=== PATIENT | male | born 1945 | race Caucasian/White ===

== ENCOUNTER → 2017-02-02 | Outpatient (CLI) | payer MEDICARE, OTHER ==
[~2017-02-02] MED LIST: ADVIL LIQUI-GE200 MG PO; BC1 POW; CIALIS10 MG PO; CORDARONE200 MG/TAB PO; FLEXERIL 1010 MG/TAB PO; FLEXERIL10 MG PO; GLUCOSAMINE S1000 MG PO; LOTENSIN40 MG PO; PRADAXA 150MG150 MG PO; PROSCAR 5MG5 MG PO; ULTRAM 50MG TAB50 MG PO; ZITHROMAX 250M250 MG PO
== END ==
LOC: COL.VAS 08:45
DX: I82.512 Chronic embolism and thrombosis of left femoral vein (principal); I82.532 Chronic embolism and thrombosis of left popliteal vein; M79.605 Pain in left leg; M79.89 Other specified soft tissue disorders

== ENCOUNTER → 2017-03-14 | Outpatient (CLI) | payer MEDICARE, OTHER ==
[2017-03-14 13:22] LABS: MEAN CELL VOLUME 88 fl (80.0-100.0); MEAN CORPUSCULAR HEMOGLOBIN 30 pg (27.0-31.0); MEAN CORPUSCULAR HGB CONC 34 g/dl (33.0-37.0); MEAN PLATELET VOLUME 9.6 fl (7.4-10.4); PLATELET COUNT 233 K/mm3 (130-400); RED BLOOD COUNT 5.93 M/mm3 (4.20-5.60); REDCELL DISTRIBUTION WIDTH-CV 14.6 % (11.5-14.5); WHITE BLOOD COUNT 7.3 K/mm3 (4.8-10.8)
[2017-03-14 13:24] LABS: HEMATOCRIT 52.4 % (42.0-52.0)
[2017-03-14 13:27] LABS: CALCIUM 9.4 mg/dL (8.4-10.2); CREATININE, serum 1.09 mg/dL (0.66-1.25); POTASSIUM 3.2 mmol/L (3.4-5.0)
== END ==
LOC: COL.LAB 11:05
PROVIDERS: Internal Medicine Interventional Cardiology
DX: I82.409 Acute embolism and thrombosis of unspecified deep veins of unspecified lower extremity (principal); R60.9 Edema, unspecified

== ENCOUNTER → 2019-12-13 | Outpatient (CLI) | payer MEDICARE, OTHER ==
[2019-12-13 11:53] LABS: HEMOGLOBIN 17.7 g/dl (13.5-18.0); MEAN CELL VOLUME 90 fl (80.0-100.0); MEAN CORPUSCULAR HEMOGLOBIN 30 pg (27.0-31.0); MEAN CORPUSCULAR HGB CONC 33 g/dl (33.0-37.0); MEAN PLATELET VOLUME 10.3 fl (7.4-10.4); PLATELET COUNT 220 K/mm3 (130-400); REDCELL DISTRIBUTION WIDTH-CV 14.2 % (11.5-14.5)
[2019-12-13 11:55] LABS: CREATININE, serum 1.08 (0.66-1.25); POTASSIUM 3.8 mmol/L (3.4-5.0)
[2019-12-13 11:56] LABS: INR 1.2 (0.8-3.0); PROTHROMBIN TIME 13.8 SECONDS (9.7-12.8)
[2019-12-13 11:57] LABS: HEMATOCRIT 53.7 % (42.0-52.0)
== END ==
LOC: COL.LAB 11:22
PROVIDERS: Internal Medicine Interventional Cardiology
DX: I82.512 Chronic embolism and thrombosis of left femoral vein (principal); Z79.01 Long term (current) use of anticoagulants

== ENCOUNTER 2020-10-10 22:11 | Inpatient (IN) | payer MEDICARE, OTHER ==
[~2020-10-10] VITALS: Ht 182.9 cm; Wt 114.1 kg
[~2020-10-10 22:11] MED LIST changes: +GLUCOSAMINE 1000 PO; -GLUCOSAMINE S1000 MG PO
[2020-10-11] LABS: BASO % 0.3 % (0.0-2.0); GRAN # 6.6 (1.4-6.5); GRAN % 84.8 % (42.2-75.2); HEMATOCRIT 48.7 % (42.0-52.0); HEMOGLOBIN 16.3 g/dl (13.5-18.0); LYMPH # 0.4 (1.2-3.4); LYMPH % 5.4 % (20.0-51.0); MEAN CELL VOLUME 87 fl (80.0-100.0); MEAN CORPUSCULAR HEMOGLOBIN 29 pg (27.0-31.0); MEAN CORPUSCULAR HGB CONC 34 g/dl (33.0-37.0); MEAN PLATELET VOLUME 10.7 fl (7.4-10.4); MONO # 0.7 (0.1-0.6); MONO % 9.1 % (1.7-9.3); PLATELET COUNT 174 K/mm3 (130-400); RED BLOOD COUNT 5.63 M/mm3 (4.20-5.60); REDCELL DISTRIBUTION WIDTH-CV 13.5 % (11.5-14.5)
[2020-10-11 00:01] LABS: INR 2.1 (0.8-3.0); PROTHROMBIN TIME 23.7 SECONDS (9.7-12.8)
[2020-10-11 00:04] LABS: PARTIAL THROMBOPLASTIN TIME 48.6 SECONDS (26.0-37.0)
[2020-10-11 00:07] LABS: BILIRUBIN,TOTAL 1.1 mg/dL (0.0-1.0); CALCIUM 8.2 mg/dL (8.4-10.2); CREATININE, serum 1.13 (0.66-1.25); POTASSIUM 3.3 mmol/L (3.4-5.0); TOTAL PROTEIN 7.1 gm/dL (6.4-8.2)
[2020-10-11 00:20] LABS: TROPONIN-I 0.039 ng/mL (0.000-0.035)
[2020-10-11 00:37] LABS: THYROID STIMULATING HORMONE 2.27 uIU/mL (0.465-4.680)
[2020-10-11] MEDS ORDERED: ELIQUIS 5MG PO (02:46)
[2020-10-11] MEDS ORDERED: HYDRODIURIL50 MG PO (02:48)
[2020-10-11] MEDS ORDERED: DIGESTIVE ADVA1 EAC1 PO ×2 (02:53→02:54)
--- NOTE | 2020-10-11 03:20 | NUR ---
PT A/O X4, IN BED WITH HOB ELEVATED TO 30 DEGREE ANGLE. PT DENIES ANY PAIN OR DISCOMFORT OR ANY NEEDS. CALL LIGHT WITHIN REACH AND BED ALARM ON.
[2020-10-11 04:03] VITALS: BP 153/75; PULSE 73; TEMP 98.2
--- NOTE | 2020-10-11 04:12 | NUR ---
NOTIFIED DR. VALDEZ OF [facility]. RECEIVED ORDERS TO RECHECK TROPONIN IN A COUPLE OF HOURS. SHE ADVISED ORDER WAS ALREADY IN.
[2020-10-11 04:16] LABS: COLLECTION METHOD CLEAN CATCH
[2020-10-11 04:21] LABS: PH 6 (5-8); SQUAMOUS EPITHELIAL None Seen /hpf; URINE APPEARANCE Clear; URINE BACTERIA Rare /hpf; URINE BILIRUBIN Negative (NEGATIVE); URINE BLOOD 1+ (NEGATIVE); URINE COLOR Yellow; URINE GLUCOSE Negative (NEGATIVE); URINE KETONE Negative (NEGATIVE); URINE LEUKOCYTE ESTERASE Negative (NEGATIVE); URINE NITRATE Negative (NEGATIVE); URINE PROTEIN(semi-quant) Negative (NEGATIVE); URINE RBC 0-2 /hpf; URINE UROBILINOGEN Negative (NEGATIVE)
--- NOTE | 2020-10-11 07:32 | NUR ---
PT IN BED WITH HOB ELEVATED AND OXYGEN ON. PT SLEEPING BUT EASILY AWAKENS. PT DENIES PAIN OR DISCOMFORT, AND NO NEEDS AT THIS TIME, CALL LIGHT WITHIN REACH, AND BED ALARM ON.
[2020-10-11 08:22] VITALS: BP 148/66; PULSE 75; TEMP 98.9
--- NOTE | 2020-10-11 11:12 | NUR ---
PATIENT ASSESSMENT COMPLETED. HE WAS FOUND TO HAVE ACCIDENTALLY PULLED OUT HIS IV TO THE LEFT AC WILL RESTART. COUGH IS BETTER THAN IT WAS. O2 5L
[2020-10-11 13:16] VITALS: BP 140/62; PULSE 78; TEMP 98.6
[2020-10-11 15:38] VITALS: BP 146/64; PULSE 86; TEMP 98.4
[2020-10-11 19:20] VITALS: BP 130/48; PULSE 97; TEMP 100.7
[2020-10-11 20:00] VITALS: BP 164/83; PULSE 76; TEMP 98.3
--- NOTE | 2020-10-11 20:00 | NUR ---
Patient in bed resting. Alert and oriented x 3. Assessment complete. Fluids infusing per orders to right AC IV. Patient denies pain at this time. Lung bases diminished bilaterally. Denies further needs at this time.
--- NOTE | 2020-10-11 21:00 | NUR ---
Patient up to recliner, denies further needs at this time.
--- NOTE | 2020-10-11 21:20 | NUR ---
Patient tempt of 101.7, tylenol given per orders. Will continue to monitor.
[2020-10-12] VITALS (303 sets, daily range): BP systolic 119–164; BP diastolic 55–98; PULSE 72–87; TEMP 97–102.1; O2SAT 82–99
--- NOTE | 2020-10-12 06:53 | NUR ---
Patient has done well throughout the night. Minimal needs. Has been up to recliner today. Remains of 5l O2 via NC. Fluids infusing per orders. Denies further needs at this time. Will report off to city distribution clerk.
--- NOTE | 2020-10-12 07:07 | NUR ---
patient asleep during nurse report.
--- NOTE | 2020-10-12 13:00 | NUR ---
Patient brought to ICU, placed on Airvo and Dr. Aguayo in room to see patient. Patient is given update on plan of care and possibility of needing intubation if he worsens. Patient is also notified of need for PICC line, he agrees. Initial assessment and vitals completed. He is febrile with temp of 102.[address] aguayo gives order to give tylenol for fever. Will continue to monitor
[2020-10-12 13:16] LABS: ARTERIAL BLD GAS O2 SATURATION 92.3 % (92-100); ARTERIAL BLD GAS TCO2 CT 29.9; ARTERIAL BLOOD GAS BASE EXCESS 5.3 (-2-2); ARTERIAL BLOOD GAS HCO3 28.7 meq/L (22-26); ARTERIAL BLOOD GAS PO2 53.6 mmHg (80-100)
--- NOTE | 2020-10-12 13:30 | NUR ---
, Essie, contacted and notified in change in patient condition and the plan of care from this point on. She is given the number to the ICU and the privacy passcode. She verbalizes understanding.
[2020-10-12 13:50] LABS: BASO % 0.1 % (0.0-2.0); GRAN # 9.4 (1.4-6.5); GRAN % 87.1 % (42.2-75.2); HEMATOCRIT 45.7 % (42.0-52.0); HEMOGLOBIN 15.4 g/dl (13.5-18.0); LYMPH # 0.5 (1.2-3.4); LYMPH % 4.4 % (20.0-51.0); MEAN CELL VOLUME 87 fl (80.0-100.0); MEAN CORPUSCULAR HEMOGLOBIN 29 pg (27.0-31.0); MEAN CORPUSCULAR HGB CONC 34 g/dl (33.0-37.0); MEAN PLATELET VOLUME 10.4 fl (7.4-10.4); MONO # 0.8 (0.1-0.6); MONO % 7.7 % (1.7-9.3); PLATELET COUNT 221 K/mm3 (130-400); RED BLOOD COUNT 5.28 M/mm3 (4.20-5.60); REDCELL DISTRIBUTION WIDTH-CV 14.1 % (11.5-14.5)
--- NOTE | 2020-10-12 14:02 | NUR ---
PATIENT ALERT AND ORIENTED, STARTED TO SAT 83%-87% ON 5L. changed to High Flow at 15L, RT placed patient on Airvo 30L at 50%, Patient was still sating 88-89%. Patient was increased to 45L. Labored breathing. Dr Branch ordered to transfer patient to ICU 03. Report given to KRISTA Geiger . Patient transferred. Son updated on the transfer.
[2020-10-12 14:04] LABS: CALCIUM 7.6 mg/dL (8.4-10.2); MAGNESIUM 2.3 mg/dL (1.6-2.3); POTASSIUM 3.8 mmol/L (3.4-5.0)
[2020-10-12 14:20] LABS: C-REACTIVE PROTEIN 19.6 mg/dL (0.0-0.9)
--- NOTE | 2020-10-12 16:43 | NUR ---
Patient transferred from the Medical Floor to the ICU. SW attempted to contact patient's , Essie at her home and cell number and was unable to reach her. SW left a message on patient's cell. SW also attempted to contact patient's other contact, Simon and was unable to leave a message as the mailbox was full. ILIANA will follow up tomorrow.
[2020-10-12 18:12] LABS: ARTERIAL BLD GAS TCO2 CT 29.3; ARTERIAL BLOOD GAS BASE EXCESS 3.6 (-2-2); ARTERIAL BLOOD GAS PCO2 41.6 mmHg (35-45); ARTERIAL BLOOD GAS PO2 61.8 mmHg (80-100); ARTERIAL BLOOD GAS pH 7.45 (7.35-7.45)
[2020-10-12 23:00] LABS: ARTERIAL BLD GAS O2 SATURATION 96.2 % (92-100); ARTERIAL BLD GAS TCO2 CT 26.7; ARTERIAL BLOOD GAS BASE EXCESS 1.9 (-2-2); ARTERIAL BLOOD GAS HCO3 25.6 meq/L (22-26); ARTERIAL BLOOD GAS PCO2 37.1 mmHg (35-45); ARTERIAL BLOOD GAS PO2 76.5 mmHg (80-100); ARTERIAL BLOOD GAS pH 7.46 (7.35-7.45)
[2020-10-13] VITALS (895 sets, daily range): BP systolic 133–216; BP diastolic 71–132; PULSE 64–99; TEMP 97.5–98.8; O2SAT 65–100
--- NOTE | 2020-10-13 00:08 | NUR ---
2119 PATIENT NO LONGER TOLERATING THE AIRVO SPO2 IN THE LOW 80'S AND MAXED OUT ON AIRVO. BEN NOTIFIED DR. CONTRERAS ORDERED ABG ONE HOUR POST BIPAP. WILL CONTINUE TO MONITOR PATIENT.
--- NOTE | 2020-10-13 01:31 | NUR ---
Initiated vecuronium drip. TOF obtained with 4 twitches noted before and 15 min after initiation of drip.
[2020-10-13 04:59] LABS: ARTERIAL BLD GAS O2 SATURATION 96.5 % (92-100); ARTERIAL BLD GAS TCO2 CT 29.2; ARTERIAL BLOOD GAS BASE EXCESS 3.1 (-2-2); ARTERIAL BLOOD GAS HCO3 27.9 meq/L (22-26); ARTERIAL BLOOD GAS PO2 81.7 mmHg (80-100); ARTERIAL BLOOD GAS pH 7.43 (7.35-7.45)
[2020-10-13 05:32] LABS: BASO % 0.2 % (0.0-2.0); GRAN # 9.6 (1.4-6.5); GRAN % 89.6 % (42.2-75.2); HEMATOCRIT 46.9 % (42.0-52.0); HEMOGLOBIN 15.3 g/dl (13.5-18.0); LYMPH # 0.4 (1.2-3.4); LYMPH % 3.4 % (20.0-51.0); MEAN CELL VOLUME 87 fl (80.0-100.0); MEAN CORPUSCULAR HEMOGLOBIN 28 pg (27.0-31.0); MEAN CORPUSCULAR HGB CONC 33 g/dl (33.0-37.0); MEAN PLATELET VOLUME 10.7 fl (7.4-10.4); MONO # 0.6 (0.1-0.6); MONO % 5.9 % (1.7-9.3); PLATELET COUNT 236 K/mm3 (130-400); RED BLOOD COUNT 5.38 M/mm3 (4.20-5.60); REDCELL DISTRIBUTION WIDTH-CV 14.3 % (11.5-14.5)
[2020-10-13 05:48] LABS: CALCIUM 7.4 mg/dL (8.4-10.2); CREATININE, serum 0.89 (0.66-1.25); MAGNESIUM 2.4 mg/dL (1.6-2.3); PHOSPHOROUS 2.9 mg/dL (2.5-4.5); POTASSIUM 4.2 mmol/L (3.4-5.0)
--- NOTE | 2020-10-13 10:49 | NUR ---
SW update: Attempted call to Essie at [phone] and [phone] and did not gain contact. SW will try again.
--- NOTE | 2020-10-13 12:12 | NUR ---
Son and called with updates. Both voice understanding of POC and disease process. Patient awake in room. Able to reposition self in bed, but states "I feel like I just ran a marathon" after repositioning.
--- NOTE | 2020-10-13 22:00 | NUR ---
Notifed by RT that patient appeared to be having an increased work of breathing with respirations in the 50's. RT called Dr. Ortiz with [facility] and reported patient condition and requested an ABG. Physician denied need for an ABG and requested to intubate at this time. Anethesia and hospitalist notified. This nurse also called patient's and updated her on patient condition and the need for intubation. was agreeable to intubation at this time.
--- NOTE | 2020-10-13 22:27 | NUR ---
Discussed care plan with patient and stated that after speaking with the physician we have decieded to intubate. Patient is currenlty alert and oriented and agreeable to intubation at this time.
--- NOTE | 2020-10-13 22:40 | NUR ---
Anesthesia at bedside to intubate.
--- NOTE | 2020-10-13 23:30 | NUR ---
Arterial line placed by anesthesia. Patient hypertensive with systolics in the 200's; sedation and pain medications initiated. Hospitalist notified of hypertension. Instructed to wait approximatelly 15 minutes and call back if BP not trending down.
[2020-10-14] VITALS (598 sets, daily range): BP systolic 68–175; BP diastolic 46–91; PULSE 59–97; TEMP 98.1–100.6; O2SAT 84–100
--- NOTE | 2020-10-14 00:20 | NUR ---
Patient desaturates to mid to low 80's with any stimulation. Vent frequently alarming high and low PEEP. Discussed care with [facility] physician Dr. Paual and will initiate Vecuronium drip.
[2020-10-14 01:34] LABS: ARTERIAL BLD GAS TCO2 CT 25.9; ARTERIAL BLOOD GAS BASE EXCESS -3.2 (-2-2); ARTERIAL BLOOD GAS HCO3 24.3 meq/L (22-26); ARTERIAL BLOOD GAS PCO2 53.1 mmHg (35-45); ARTERIAL BLOOD GAS PO2 53.7 mmHg (80-100); ARTERIAL BLOOD GAS pH 7.28 (7.35-7.45)
--- NOTE | 2020-10-14 03:59 | NUR ---
2202 CALLED BEN PATIENT IS HAVING INCREASED WORK OF BREATHING WITH RATE IN THE 50'S AND BEGINNING TO DESAT. BEN WANTED TO INTUBATE AND HAVE PAPER CONE GRADER ANESTHESIA CALLED. DOES NOT WANT ABG PRIOR TO INTUBATION.
--- NOTE | 2020-10-14 04:01 | NUR ---
2240 PATIENT WAS INTUBATED WITH A 8.5 ETT 25@LIP. POST INTUBATION PATIENT STARTED DESATING AND HAVING LOW BLOOD PRESSURE. EVEN WHILE BAGGING PATIENT SPO2 IS NOT COMING UP. STARTED THE VENT IN ORDER TO GET PEEP IN FOR PATIENT. ORIGINAL SETTINGS GIVEN BY DR. SANTIAGO WAS VT 500, RATE 12, PEEP OF 5. HOWEVER PATIENT WAS STILL NOT TOLERATING HAVING WORSE SPO2 TO THE 70'S. CHANGED SETTINGS TO VT 450, RATE 20, PEEP OF 15, SETTINGS VERIFIED WITH BEN. INSTRUCTED TO WAIT 30 MIN TO SEE SPO2 IMPROVEMENT AND IF NOT WANTS TO POSSIBLY PRONE PATIENT. AT 0144 CALLED BEN TO NOTIFY OF PATIENTS ABG RESULTS. DR. GIBSON WOULD LIKE TO INCREASE THE PEEP TO 20. AT 0046 PEEP WAS INCREASED TO 20 WITH SIGNIFICANT IMPROVEMENT IN SPO2.
--- NOTE | 2020-10-14 04:10 | NUR ---
TOF performed and no twitch observed. Decreased drip rate at this time.
--- NOTE | 2020-10-14 04:22 | NUR ---
PATIENT HAS HME
--- NOTE | 2020-10-14 04:38 | NUR ---
Discussed bordeline hypotensive BP's and low urine output with Nurse from [facility]. Currenlty on Vecuronium. Can continue to titrate down until response is seen with TOF. Nurse to discuss care with [facility] physician. Will await further orders.
[2020-10-14 05:21] LABS: HEMATOCRIT 47.6 % (42.0-52.0); HEMOGLOBIN 15.2 g/dl (13.5-18.0); MEAN CELL VOLUME 90 fl (80.0-100.0); MEAN CORPUSCULAR HEMOGLOBIN 29 pg (27.0-31.0); MEAN CORPUSCULAR HGB CONC 32 g/dl (33.0-37.0); MEAN PLATELET VOLUME 10.9 fl (7.4-10.4); PLATELET COUNT 189 K/mm3 (130-400); RED BLOOD COUNT 5.28 M/mm3 (4.20-5.60); REDCELL DISTRIBUTION WIDTH-CV 14.7 % (11.5-14.5)
[2020-10-14 05:30] LABS: CALCIUM 7.8 mg/dL (8.4-10.2); CREATININE, serum 1.02 (0.66-1.25); MAGNESIUM 2.6 mg/dL (1.6-2.3); PHOSPHOROUS 5.1 mg/dL (2.5-4.5); POTASSIUM 4.5 mmol/L (3.4-5.0)
[2020-10-14 05:52] LABS: BAND 7 % (0-10); LYMPHOCYTE 2 % (20.0-51.0); NEUTROPHILS 89 % (42.0-75.2); PLATELET ESTIMATE NORMAL (NORMAL)
[2020-10-14 05:54] LABS: HYPOCHROMIA 1+
[2020-10-14 06:04] LABS: ARTERIAL BLD GAS O2 SATURATION 98.8 % (92-100); ARTERIAL BLD GAS TCO2 CT 29.1; ARTERIAL BLOOD GAS BASE EXCESS -4.3 (-2-2); ARTERIAL BLOOD GAS HCO3 26.7 meq/L (22-26)
[2020-10-14 06:05] LABS: ARTERIAL BLOOD GAS PCO2 76.7 mmHg (35-45); ARTERIAL BLOOD GAS PO2 169.7 mmHg (80-100); ARTERIAL BLOOD GAS pH 7.16 (7.35-7.45)
--- NOTE | 2020-10-14 07:00 | NUR ---
REPORT RECEIVED FROM MARIBEL VELASCO. PT HAS VEC RUNNING AT 0.4MCG, PROP FRUNNING AT 35MCG, AND FENT RUNNING AT 50MCG.
--- NOTE | 2020-10-14 07:03 | NUR ---
PT HAS HME
--- NOTE | 2020-10-14 09:45 | NUR ---
ATTEMPTED TO CALL SON FOR TO UPDATE THREE TIMES BUT NO ANSWER.
[2020-10-14 12:09] LABS: ARTERIAL BLD GAS O2 SATURATION 93.9 % (92-100); ARTERIAL BLD GAS TCO2 CT 28.1; ARTERIAL BLOOD GAS BASE EXCESS -1.5 (-2-2); ARTERIAL BLOOD GAS HCO3 26.3 meq/L (22-26); ARTERIAL BLOOD GAS PCO2 56.7 mmHg (35-45); ARTERIAL BLOOD GAS PO2 63.3 mmHg (80-100); ARTERIAL BLOOD GAS pH 7.29 (7.35-7.45)
--- NOTE | 2020-10-14 12:12 | NUR ---
PT BECAME HYPOTENSIVE IN THE 60'S. SEDATIONS STOPPED. PT NOT RESPONDING. CALLED AND ORDER FOR LEVOPHED RECEIVED. LEVO STARTED. ABG DONE BY RESPIRATORY. BG SHOWS 132. PT STARTED TO RESPOND AFTER SEDATION OFF FOR 2O MINS. PT ABLE TO FOLLOW COMMANDS AND ANSWER YES AND NO QUESTIONS. BP BACK UP AND LEVO WEANED OFF. WILL SLOWLY RESTART SEDATION NEEDED.
--- NOTE | 2020-10-14 13:50 | NUR ---
PT PRONED WITH RT, PT AND ANOTHER RN. PT'S VSS. WILL CONTINUE TO MONITOR.
--- NOTE | 2020-10-14 17:00 | NUR ---
PT HAD A SEDATION VACATION EARLIER IN THE DAY. PT WAS ABLE TO MOVE ALL EXTREMITIES, FOLLOW COMMANDS AND ANSWER YES/NO QUESTIONS. PT STILL IN PRONE POSITION AND TURNED. PT BECAME TACHYPNIC AND RESTLESS DURING TURN. WILL NOT DO ANOTHER SEDATION VACATION AT THIS TIME.
[2020-10-14 17:17] LABS: ARTERIAL BLD GAS O2 SATURATION 97.8 % (92-100); ARTERIAL BLD GAS TCO2 CT 24.6; ARTERIAL BLOOD GAS BASE EXCESS -2.7 (-2-2); ARTERIAL BLOOD GAS HCO3 23.3 meq/L (22-26); ARTERIAL BLOOD GAS PCO2 44.3 mmHg (35-45); ARTERIAL BLOOD GAS PO2 98.2 mmHg (80-100); ARTERIAL BLOOD GAS pH 7.34 (7.35-7.45)
--- NOTE | 2020-10-14 21:00 | NUR ---
TUBE FEEDS INCREASED TO 35 MLS/HR PER TUBE FEED ORDERS. RESIDUALS <5 MLS.
[2020-10-15] VITALS (623 sets, daily range): BP systolic 111–175; BP diastolic 55–80; PULSE 59–70; TEMP 96.7–98.1; O2SAT 84–100
[2020-10-15 04:18] LABS: BASO % 0.2 % (0.0-2.0); HEMATOCRIT 46.8 % (42.0-52.0); HEMOGLOBIN 15.1 g/dl (13.5-18.0); LYMPH # 0.4 (1.2-3.4); MEAN CELL VOLUME 89 fl (80.0-100.0); MEAN CORPUSCULAR HEMOGLOBIN 29 pg (27.0-31.0); MEAN CORPUSCULAR HGB CONC 32 g/dl (33.0-37.0); MEAN PLATELET VOLUME 10.2 fl (7.4-10.4); MONO # 0.2 (0.1-0.6); MONO % 1.9 % (1.7-9.3); PLATELET COUNT 186 K/mm3 (130-400); RED BLOOD COUNT 5.28 M/mm3 (4.20-5.60); REDCELL DISTRIBUTION WIDTH-CV 14.9 % (11.5-14.5)
[2020-10-15 04:28] LABS: CALCIUM 8.1 mg/dL (8.4-10.2); CREATININE, serum 1.31 (0.66-1.25); PHOSPHOROUS 2.8 mg/dL (2.5-4.5); POTASSIUM 4.1 mmol/L (3.4-5.0)
[2020-10-15 06:17] LABS: ARTERIAL BLD GAS O2 SATURATION 99.3 % (92-100); ARTERIAL BLD GAS TCO2 CT 25.7; ARTERIAL BLOOD GAS BASE EXCESS -0.2 (-2-2); ARTERIAL BLOOD GAS HCO3 24.5 meq/L (22-26); ARTERIAL BLOOD GAS PCO2 40.1 mmHg (35-45)
[2020-10-15 06:18] LABS: ARTERIAL BLOOD GAS PO2 192.7 mmHg (80-100)
--- NOTE | 2020-10-15 07:27 | NUR ---
PT IS NOT ON WEAN TRIAL HIS SETTINGS ARE TOO HIGH AND DOES NOT QUALIFY. PT IS ON DOCUMENTED SETTINGS MANJIT WELL WITH NO DISTRESS NOTED AT THIS TIME
--- NOTE | 2020-10-15 07:30 | NUR ---
RECEIVED REPORT FROM KRISTA LEWIS. PT RESTING EASILY. DR GARCIA AT BEDSIDE FOR ASSESSMENT. VENT SETTINGS CHANGED TO : AC, TV 500, PEEP14, RR 30, FIO2 100%. OGT AT 68 CM WITH TF INFUSING AT 35ML/HR. SEE GTT FLOWSHEET. VSS. ART LINE NOTED WITH GOOD WAVE FORM. FC PATENT AND DRAINING TO GRAVITY. INFORMATION RESOURCE CONSULTANT IN PLACE.
--- NOTE | 2020-10-15 07:51 | NUR ---
TIMELINE OF EVENTS 10/14 2215-- APPX. AT THIS TIME, TELE NOTIFIED THIS RN (WHO WAS IN A DIFFERENT ROOM AT THE TIME) THAT THIS PT HAD HIS HAND ON THE ET TUBE AND LEGS WERE SLIDING OUT OF BED. THIS RN IMMEDIATELY PUT ON PROPER PPE, ENTERED PATIENT ROOM TO FIND PATIENT WITH BOTH HIS LEGS SLIDING OUT OF THE BOTTOM OF THE BED, HAND TIGHTLY GRIPPED ON ET TUBE. TUBE APPEARED TO BE PARTIALLY PULLED OUT WHEN COMPARED TO PREVIOUS ET TUBE DEPTH. PT WAS NOT FOLLOWING COMMANDS AND THIS RN HAD TO GRAB PT HAND AND PULL IT OFF THE TUBE. AT THIS POINT IN TIME, ANOTHER RN AND RT ENTERED THE ROOM TO ASSIST. BEN WAS CALLED TO NOTIFY OF THE SITUATION. STAT CHEST XRAY ORDERED ALONG WITH ORDER TO INCREASE PEEP TO 17 ONCE PATIENT WAS UNPRONED, PT STAYED UNPRONED THE REST OF THE EVENING PER PROVIDER ORDER. PT THEN UNPRONED, SEDATION INCREASED, LEADS AND O2 SAT REPLACED PATIENT HAD PULLED THEM OFF, RESTRAINTS DOUBLE CHECKED, BED ALARM ON.
--- NOTE | 2020-10-15 07:53 | NUR ---
2102 PT HIGH PEAK ALARM GOING OFF CONSTANTLY. LOWERED 600 VT TO 550. HIGH PEAK ALARM INCREASED TO 60. 2345 PEEP INCREASED TO 17 WHEN PT SEDATION RAN OUT AWAKE AND PULLED TUBE. LOWERED VT 530 PTS PEAK PRESSURES WERE VERY HIGH. PTS SET VT IS NOW 530.
--- NOTE | 2020-10-15 08:30 | NUR ---
DR GARCIA STATES TO ADVANCE OGT 10 CM, ADVANCED TO 78CM. RESIDUAL 20ML. TF INCREASED TO 50ML/HR WHICH IS GOAL PER ORDERS.
--- NOTE | 2020-10-15 13:00 | NUR ---
BEDSIDE REPORT RECIEVED FROM LAURA VELASCO. QUESTIONS ANSWERED. PT RESTING IN BED. SEE ASSESSMENT AND DOCUMENTATION.
[2020-10-15 16:34] LABS: ALBUMIN 2.9 gm/dL (3.5-5.0); BILIRUBIN UNCONJUGATED 0.2 mg/dL (0.0-1.1); BILIRUBIN,DIRECT 0.7 mg/dL (0.0-0.4); BILIRUBIN,TOTAL 0.9 mg/dL (0.0-1.0)
--- NOTE | 2020-10-15 19:06 | NUR ---
SPOKE WITH THE PATIENTS SON. GAVE GENERAL UPDATES. SON REQUESTS TO SPEAK WITH HIS FATHER. REITERATED THAT THE PATIENT WON'T BE ABLE TO SPEAK BACK, BUT HE SHOULD BE ABLE TO HEAR HIM. pLACED THE PHONE NEXT TO THE PATIENT ON SPEAKER PHONE. LEFT THE SON WITH THE INSTRUCTIONS TO HANG UP WHEN HE WAS DONE AND I WOULD COME BACK AND GET THE PHONE LATER. PT RESTING PRONE AND CALM WHEN EXITING THE ROOM.
[2020-10-16] VITALS (666 sets, daily range): BP systolic 128–141; BP diastolic 62–76; PULSE 59–90; TEMP 97.5–98.1; O2SAT 80–100
[2020-10-16 04:26] LABS: ARTERIAL BLD GAS O2 SATURATION 96.6 % (92-100); ARTERIAL BLD GAS TCO2 CT 25.4; ARTERIAL BLOOD GAS BASE EXCESS -2.6 (-2-2); ARTERIAL BLOOD GAS HCO3 23.9 meq/L (22-26); ARTERIAL BLOOD GAS PCO2 48.2 mmHg (35-45); ARTERIAL BLOOD GAS PO2 88.3 mmHg (80-100); ARTERIAL BLOOD GAS pH 7.31 (7.35-7.45)
--- NOTE | 2020-10-16 05:00 | NUR ---
NO SEDATION VACATION DONE AT THIS TIME PATIENT IS PRONED AND VERY AGITATED, ATTEMPTS TO PULL ET TUBE IF SEDATION IS STOPPED FOR >2 MINUTES.
--- NOTE | 2020-10-16 07:42 | NUR ---
REPORT RECEIVED FROM KRISTA JOSEPH. ALL QUESTIONS ANSWERED AND MEDICATIONS VERIFIED. PROPOFOL RUNNING AT 45MCG/KG/MIN, FENTANYL RUNNING AT 100MCG/HR AND ns RUNNING AT 60MLS/HR. PATIENT INTUBATED AND SEDATED IN PRONE POSITION IN BED. VS REMAIN WNL. WILL CONTINUE TO MONITOR.
--- NOTE | 2020-10-16 07:51 | NUR ---
PTS VENT SETTINGS ARE TOO HIGH TO QUALIFY FOR A WEAN TRIAL AT THIS TIME. PT IS ON DOCUMENTED SETTINGS.
[2020-10-16 10:12] LABS: HEMATOCRIT 42.6 % (42.0-52.0); HEMOGLOBIN 13.6 g/dl (13.5-18.0); MEAN CELL VOLUME 89 fl (80.0-100.0); MEAN CORPUSCULAR HEMOGLOBIN 29 pg (27.0-31.0); MEAN CORPUSCULAR HGB CONC 32 g/dl (33.0-37.0); MEAN PLATELET VOLUME 10.4 fl (7.4-10.4); PLATELET COUNT 182 K/mm3 (130-400); RED BLOOD COUNT 4.77 M/mm3 (4.20-5.60); REDCELL DISTRIBUTION WIDTH-CV 15.2 % (11.5-14.5)
[2020-10-16 10:32] LABS: BAND 7 % (0-10); LYMPHOCYTE 3 % (20.0-51.0); METAMYELOCYTE 1 % (0-0); NEUTROPHILS 89 % (42.0-75.2)
[2020-10-16 10:33] LABS: PLATELET ESTIMATE NORMAL (NORMAL)
[2020-10-16 10:35] LABS: CALCIUM 7.6 mg/dL (8.4-10.2); CREATININE, serum 1.11 (0.66-1.25); MAGNESIUM 3.2 mg/dL (1.6-2.3); PHOSPHOROUS 2.5 mg/dL (2.5-4.5); POTASSIUM 4.2 mmol/L (3.4-5.0)
--- NOTE | 2020-10-16 14:40 | NUR ---
DISCONTINUED NS PER DOCTOR EDDIE ORDER
--- NOTE | 2020-10-16 17:47 | NUR ---
SEDTION VACATION NOT ATTEMPTED. PATIENT PLACED IN PRONE POSITION. PATIENT BECOMES VERY RESTLESS AND ATTEMPTS TO PULL AT ET TUBES AND LINES WHEN PROPOFOL TURNED DOWN OR ON STANDBY.
--- NOTE | 2020-10-16 19:00 | NUR ---
RECEIVED REPORT FROM NICOLASA VELASCO. PUMPS VERIFIED. PT IN PRONE TO HIS RIGHT AT THIS TIME. TOLERATING WELL.
--- NOTE | 2020-10-16 21:30 | NUR ---
UNABLE TO GET A TRAIN OF FOUR PRIOR TO VEC DRIP INTIATION. PT IS STACKING BREATHS AND PEAK PRESSURES ARE HIGH 55 AT TIMES. DOESN'T DROP PEAK PRESSSURE LOWER THAN 50. INTIATED VEC DRIP PER ORDERS. 2200 - PT CONTINUES TO HAVE ELEVATED PEAK PRESSURES. VEC DRIP INCREASED. PT SUCTIONED WELL, AND REPOSITIONED.
[2020-10-17] VITALS (763 sets, daily range): BP systolic 119–127; BP diastolic 50–69; PULSE 59–80; TEMP 97.7–98.6; O2SAT 78–99
--- NOTE | 2020-10-17 00:30 | NUR ---
PT RESTING AND TOLERATING VENT MUCH BETTER AT THIS TIME. REPOSITIONED WITH ASSIST OF 2 MORE STAFF MEMBERS. PEAK PRESSURES DOWN AROUND 40 AT THIS TIME. WILL CONTINUE TO MONITOR FOR PARALYTIC AND SEDATION NEEDS. ASSESSMENT UNCHANGED FROM BEFORE.
[2020-10-17 05:23] LABS: HEMATOCRIT 42.3 % (42.0-52.0); HEMOGLOBIN 13.5 g/dl (13.5-18.0); MEAN CELL VOLUME 92 fl (80.0-100.0); MEAN CORPUSCULAR HEMOGLOBIN 29 pg (27.0-31.0); MEAN CORPUSCULAR HGB CONC 32 g/dl (33.0-37.0); MEAN PLATELET VOLUME 10.5 fl (7.4-10.4); PLATELET COUNT 158 K/mm3 (130-400); RED BLOOD COUNT 4.62 M/mm3 (4.20-5.60); REDCELL DISTRIBUTION WIDTH-CV 15.9 % (11.5-14.5)
--- NOTE | 2020-10-17 05:24 | NUR ---
NO SEDATION VACATION AT THIS TIME. DR. GARCIA REQUESTING THAT SEDATION VACATION START AT 0900 FOR WEANING TRIAL WHEN HE ARRIVES.
[2020-10-17 05:32] LABS: CALCIUM 7.7 mg/dL (8.4-10.2); CREATININE, serum 1.28 (0.66-1.25); PHOSPHOROUS 3.6 mg/dL (2.5-4.5); POTASSIUM 4.7 mmol/L (3.4-5.0)
[2020-10-17 06:09] LABS: BAND 9 % (0-10); LYMPHOCYTE 3 % (20.0-51.0); NEUTROPHILS 87 % (42.0-75.2); PLATELET ESTIMATE NORMAL (NORMAL)
[2020-10-17 06:10] LABS: ANISOCYTOSIS 1+; HYPOCHROMIA 1+
[2020-10-17 06:15] LABS: TARGET CELLS 1+
[2020-10-17 06:17] LABS: ARTERIAL BLD GAS O2 SATURATION 99.3 % (92-100); ARTERIAL BLD GAS TCO2 CT 24.4; ARTERIAL BLOOD GAS BASE EXCESS -2.3 (-2-2); ARTERIAL BLOOD GAS HCO3 23.1 meq/L (22-26); ARTERIAL BLOOD GAS PCO2 42.4 mmHg (35-45); ARTERIAL BLOOD GAS pH 7.36 (7.35-7.45)
[2020-10-17 06:18] LABS: ARTERIAL BLOOD GAS PO2 252.7 mmHg (80-100)
--- NOTE | 2020-10-17 06:36 | NUR ---
PT IS ON TOO HIGH OF PEEP AND FI02 TO QUALIFY FOR A WEAN TRIAL PT IS IN NO DISTRESS AND IS RESTING COMFORTABLY. PT ON DOCUMENTED SETTINGS.
--- NOTE | 2020-10-17 09:01 | NUR ---
UNABLE TO GET RESPONSE ON TRAIN OF FOUR, VEC DECREASED AT THIS TIME
--- NOTE | 2020-10-17 16:16 | NUR ---
STILL NO TOF RESPONSE, PHONE ORDER PER DR GARCIA TO CUT DOSE IN HALF AT THIS TIME.
--- NOTE | 2020-10-17 17:00 | NUR ---
No sedation vacation at this time per Dr Aguayo due to increased peak pressures whenever sedation decreased.
--- NOTE | 2020-10-17 19:42 | NUR ---
Report given to Anson RN and care transfered.
[2020-10-17 20:48] LABS: ARTERIAL BLD GAS O2 SATURATION 93.5 % (92-100); ARTERIAL BLD GAS TCO2 CT 27.1; ARTERIAL BLOOD GAS BASE EXCESS -0.8 (-2-2); ARTERIAL BLOOD GAS HCO3 25.6 meq/L (22-26); ARTERIAL BLOOD GAS PCO2 48.8 mmHg (35-45); ARTERIAL BLOOD GAS PO2 68.3 mmHg (80-100); ARTERIAL BLOOD GAS pH 7.34 (7.35-7.45)
--- NOTE | 2020-10-17 22:56 | NUR ---
PT RESTING IN BED IN PRONE POSITION, CONTINUING TO TURN PT Q2H ORDER, VS STABLE REMAINS ON VENT, FOLY, PICC, OGT, REMAINS IN PLACE, PT STILL CURRENTLY IN RESTRAINTS. PT CURRENTLY REMAINS ON SEDATION AND PARALYTIC FOR VENT COMPLIANCE. TRAIN OF FOUR CONTINUING TO BE MONITOR, WITH PLACEMENT CURRENTLY ON DRUZE WITH 2/4 TWITCHES NOTED IN BROW AREA. YOSSI DAI WAS UPDATED ON PT STATUS AT 2251, WILL CONTINUE TO MONITOR PT STATUS AND UPDATE PROVIDERS NEEDED.
[2020-10-18] VITALS (655 sets, daily range): BP systolic 123–1244; BP diastolic 56–67; PULSE 59–74; TEMP 97.9–99.3; O2SAT 72–97
[2020-10-18 04:09] LABS: ARTERIAL BLD GAS O2 SATURATION 97.3 % (92-100); ARTERIAL BLOOD GAS BASE EXCESS -3.4 (-2-2); ARTERIAL BLOOD GAS HCO3 22.6 meq/L (22-26); ARTERIAL BLOOD GAS PCO2 44.3 mmHg (35-45); ARTERIAL BLOOD GAS pH 7.33 (7.35-7.45)
--- NOTE | 2020-10-18 06:49 | NUR ---
SEDATION VACTION NOT PREFORMED SECONDARY TO HIGH VENT SETTINGS AND PARALYTICS ON BOARD. WILL CONTINUE TO MONITOR.
--- NOTE | 2020-10-18 07:24 | NUR ---
PT DOES NOT QUALIFY FOR WEAN TRIAL. NO DISTRESS NOTED AT THIS TIME. PT ON DOCUMENTED SETTTINGS.
--- NOTE | 2020-10-18 07:30 | NUR ---
Report received from Anson RN and care resumed.
[2020-10-18 09:46] LABS: HEMATOCRIT 40.2 % (42.0-52.0); HEMOGLOBIN 12.7 g/dl (13.5-18.0); MEAN CELL VOLUME 90 fl (80.0-100.0); MEAN CORPUSCULAR HEMOGLOBIN 29 pg (27.0-31.0); MEAN CORPUSCULAR HGB CONC 32 g/dl (33.0-37.0); MEAN PLATELET VOLUME 10.4 fl (7.4-10.4); PLATELET COUNT 124 K/mm3 (130-400); RED BLOOD COUNT 4.45 M/mm3 (4.20-5.60); REDCELL DISTRIBUTION WIDTH-CV 16.2 % (11.5-14.5)
[2020-10-18 09:57] LABS: CALCIUM 7.6 mg/dL (8.4-10.2); CREATININE, serum 1.4 (0.66-1.25); POTASSIUM 4.3 mmol/L (3.4-5.0)
[2020-10-18 10:33] LABS: BAND 9 % (0-10); LYMPHOCYTE 1 % (20.0-51.0); METAMYELOCYTE 3 % (0-0); NEUTROPHILS 84 % (42.0-75.2); PLATELET ESTIMATE DECREASED (NORMAL)
[2020-10-18 10:34] LABS: ANISOCYTOSIS 1+
--- NOTE | 2020-10-18 12:00 | NUR ---
DC PROPOFOL VERBAL ORDER DR GARCIA DUE TO HIGH TRIGLYCERIDES AND NO RESPONSE
--- NOTE | 2020-10-18 12:00 | NUR ---
VERBAL ORDER TO START VERSED AT THIS TIME TO HELP MANAGE PEAK PRESSURES
--- NOTE | 2020-10-18 17:05 | NUR ---
Sedation decreased at this time due to increased restlessness and low sats. Also proning pt at this time.
--- NOTE | 2020-10-18 17:20 | NUR ---
Pt back to prone position at this time.
--- NOTE | 2020-10-18 19:22 | NUR ---
Report given to Aleksey VELASCO and care transfered.
--- NOTE | 2020-10-18 19:30 | NUR ---
RECEIVED REPORT FROM KRISTA PENA. ALL QUESTIONS ANSWERED AND ALL MEDICATIONS VERIFIED. PATIENT IS INTUBATED AND SEDATED AND LYING IN PRONE POSITION WITH RIGHT ARM UP. VS WNL. PATIENT APPEARS RELAXED. WILL CONTINUET TO MONITOR.
[2020-10-18 23:53] LABS: ARTERIAL BLD GAS O2 SATURATION 92.1 % (92-100); ARTERIAL BLD GAS TCO2 CT 29.5; ARTERIAL BLOOD GAS BASE EXCESS 0.4 (-2-2); ARTERIAL BLOOD GAS HCO3 27.8 meq/L (22-26); ARTERIAL BLOOD GAS PCO2 56.6 mmHg (35-45); ARTERIAL BLOOD GAS PO2 64.4 mmHg (80-100); ARTERIAL BLOOD GAS pH 7.31 (7.35-7.45)
[2020-10-19] VITALS (748 sets, daily range): BP systolic 130–156; BP diastolic 65–89; PULSE 59–88; TEMP 97.7–100.4; O2SAT 57–100
--- NOTE | 2020-10-19 03:25 | NUR ---
PATIENT OG RESIDUAL 300 AT 0330. WILL HOLD TUBE FEEDINGS FOR 2 HOURS THEN RECHECK RESIDUAL.
--- NOTE | 2020-10-19 05:05 | NUR ---
SEDATION VACATION STARTED ON PATIENT. VERSED DECREASED FROM 8MLS TO 4MLS/HR. FENTANYL DECREASED FROM 150MCG/HR TO 75 MCG/HR. PATIENT DOES AROUSABLE. WITHDRAWS FROM PAIN. VS WNL. WILL CONTINUE TO MONITOR.
[2020-10-19 05:08] LABS: ARTERIAL BLD GAS O2 SATURATION 96.1 % (92-100); ARTERIAL BLD GAS TCO2 CT 26.4; ARTERIAL BLOOD GAS BASE EXCESS -1.4 (-2-2); ARTERIAL BLOOD GAS HCO3 24.9 meq/L (22-26); ARTERIAL BLOOD GAS PCO2 48.4 mmHg (35-45); ARTERIAL BLOOD GAS PO2 86.3 mmHg (80-100); ARTERIAL BLOOD GAS pH 7.33 (7.35-7.45)
[2020-10-19 05:25] LABS: HEMATOCRIT 40.2 % (42.0-52.0); HEMOGLOBIN 12.4 g/dl (13.5-18.0); MEAN CELL VOLUME 90 fl (80.0-100.0); MEAN CORPUSCULAR HEMOGLOBIN 28 pg (27.0-31.0); MEAN CORPUSCULAR HGB CONC 31 g/dl (33.0-37.0); MEAN PLATELET VOLUME 11.5 fl (7.4-10.4); PLATELET COUNT 102 K/mm3 (130-400); RED BLOOD COUNT 4.45 M/mm3 (4.20-5.60); REDCELL DISTRIBUTION WIDTH-CV 16.4 % (11.5-14.5)
[2020-10-19 05:35] LABS: ALBUMIN 2.5 gm/dL (3.5-5.0); BILIRUBIN,TOTAL 1.1 mg/dL (0.0-1.0); CALCIUM 7.4 mg/dL (8.4-10.2); CREATININE, serum 1.5 (0.66-1.25); MAGNESIUM 3.2 mg/dL (1.6-2.3); PHOSPHOROUS 4.4 mg/dL (2.5-4.5); POTASSIUM 4.5 mmol/L (3.4-5.0); TOTAL PROTEIN 5.6 gm/dL (6.4-8.2)
[2020-10-19 05:42] LABS: PRE ALBUMIN 18.5 mg/dL (17.6-36.0)
--- NOTE | 2020-10-19 05:51 | NUR ---
COMPLETED PATIENTS SEDATION VACATION AT 0545 D/T PATIENT BECOMING RESTLESS AND BEGINNING TO PULL AT LINES. FENTANYL INCREASED TO 7.5MLS/HR AND VERSED INCREASED TO 8MLS/HR. VS REMAINED STABLE THROUGHOUT SEDATION VACATION. PATIENT WAS UNABLE TO FOLLOW COMMANDS. WITHDRAWS FROM PAIN.
[2020-10-19 06:10] LABS: ANISOCYTOSIS 1+; BAND 7 % (0-10); HYPOCHROMIA 3+; LYMPHOCYTE 7 % (20.0-51.0); NEUTROPHILS 85 % (42.0-75.2); PLATELET ESTIMATE DECREASED (NORMAL)
--- NOTE | 2020-10-19 07:30 | NUR ---
REPORT RECEIVED FROM NICOLASA VELASCO. PT HAS VERSED RUNNING AT 6MG/HR AND FENT AT 100MCG/HR. PT IN PRONE POSITION. WILL CONTINUE TO MONITOR.
--- NOTE | 2020-10-19 08:30 | NUR ---
PT UNPRONED WITH HELP OF PT, RT, AND CHARGE. ONCE PT POSITIONED SATS IN THE 80'S. MADE AWARE. PT SUCTIONED, BOOSTED, AND HOB RAISED. SATS STILL REMAINING IN THE 80'S. CHEST XRAY DONE. PT TAKEN OFF VENT AND BAGGED BY RT PER REQUEST. NO CHANGE IN SATS. IV BUMEX GIVEN PER DR GARCIA. EVALUATED PT. OTHER VS STABLE. PT IS AFEBRILE. [employer] ASSEMBLER DIELECTRIC HEATER CALLED TO SPEAK WITH PTS REGARDING PTS CONDITION. 0910: PT SATING 87%. OTHER VS. TF HELD PER . WILL CONTINUE TO MONITOR CLOSELY AND AWAIT FUTHER ORDERS.
--- NOTE | 2020-10-19 09:14 | NUR ---
Spoke with , Essie over the phone per Dr Aguayo's request. Patient is not doing well. We are having trouble keeping his O2 sturations high enough. High vent settings. Wanting her to know that he is worsening. We did discuss code status. Essie wants us to do everything to include chest compressions. To remain a full code. Questions answered about proning and other cares that we provide to help him increase his spo2. Reported conversation to Dr. Aguayo.
[2020-10-19 09:17] LABS: ARTERIAL BLD GAS O2 SATURATION 73.6 % (92-100); ARTERIAL BLD GAS TCO2 CT 26.7; ARTERIAL BLOOD GAS BASE EXCESS -1.1 (-2-2); ARTERIAL BLOOD GAS HCO3 25.2 meq/L (22-26); ARTERIAL BLOOD GAS PCO2 48.1 mmHg (35-45); ARTERIAL BLOOD GAS pH 7.34 (7.35-7.45)
[2020-10-19 09:19] LABS: ARTERIAL BLOOD GAS PO2 38.9 mmHg (80-100)
--- NOTE | 2020-10-19 09:30 | NUR ---
RECEIVED PATIENT REPORT FROM KRISTA CORDERO. ALL QUESTIONS ANSWERED AND MEDICATIONS VERIFIED. WILL RESUME CARE AT THIS TIME. VS WNL. PATIENT SEDATED AND INTUBATED IN PRONE POSITION LAYING ON RIGHT SIDE.
--- NOTE | 2020-10-19 11:00 | NUR ---
PT'S RIGHT FOOT COOL TO THE TOUCH. LEFT FOOT IS WARM. BOTH HAVE WEAK PALPABLE PULSES. DOPPLED TO VERIFY. AWARE. ORDERED TO WRAP BOTH FEET. ALSO AWARE.
[2020-10-19 14:25] LABS: COLLECTION METHOD CATHETER
[2020-10-19 14:34] LABS: BUDDING YEAST Present /hpf; MUCOUS Present /lpf; PH 5 (5-8); SQUAMOUS EPITHELIAL None Seen /hpf; URINE APPEARANCE Cloudy; URINE BACTERIA Rare /hpf; URINE BILIRUBIN Negative (NEGATIVE); URINE BLOOD 3+ (NEGATIVE); URINE COLOR Yellow; URINE GLUCOSE Negative (NEGATIVE); URINE KETONE Negative (NEGATIVE); URINE LEUKOCYTE ESTERASE Negative (NEGATIVE); URINE NITRATE Negative (NEGATIVE); URINE PROTEIN(semi-quant) Negative (NEGATIVE); URINE RBC >50 /hpf; URINE UROBILINOGEN Negative (NEGATIVE)
[2020-10-19 14:39] LABS: URINE PROTEIN:CREAT RATIO 1.14 (0.00-0.14)
[2020-10-19 15:58] LABS: ARTERIAL BLD GAS O2 SATURATION 85.9 % (92-100); ARTERIAL BLOOD GAS HCO3 30.2 meq/L (22-26); ARTERIAL BLOOD GAS PCO2 57.8 mmHg (35-45); ARTERIAL BLOOD GAS PO2 50.6 mmHg (80-100); ARTERIAL BLOOD GAS pH 7.34 (7.35-7.45)
--- NOTE | 2020-10-19 16:30 | NUR ---
PT PLACED IN PRONE POSITION WITH THE HELP OF RT, PT, AND MACHINE GRINDER. PT DESATED DOWN TO 83%. OTHER VSS. RT BEDSIDE AND SUCTIONED AND TREATEMENT GIVEN. PT TOOK ABOUT 20 MINS TO RECOVER AND IS NOW SATING 91%. WILL CONTINUE TO MONITOR.
--- NOTE | 2020-10-19 17:00 | NUR ---
PT JUST PLACED IN PRONE POSITION. PT SATING IN THE UPPER 80'S. PT TOOK 20 MINS TO RECOVER FROM POSITIONING. PT ALSO SUCTIONED AND GIVEN A TX BY RT. PT NOW SATING 91%. WILL NOT ATTEMPT A SEDATION VACATION AT THIS TIME. PT ABLE TO MOVE ALL EXTREMETIES. WILL CONTINUE TO MONITOR.
--- NOTE | 2020-10-19 20:15 | NUR ---
ADMINISTERED PRN 650MG TYLENOL TO PATIENT D/T FEVER OF 100.4 TAKEN AXILLARY. UPON REASSESSMENT NURSE NOTED PATIENTS TEMPERATURE TO BE DIFFERENT IN BOTH AXILLA. NURSE INSERTED RECTAL TEMP PROBE FOR CONSISTENT AND ACCURATE MONITORING. PATIENTS RECTAL TEMP WAS 100.5. NURSE STRIPPED PATIENT OF BLANKETS AND KEPT SHEET AROUND PATIENTS WAIST. PATIENT APPEARS COOL AND CLAMMY. WILL CONTINUE TO MONITOR AND TREAT NEEDED.
[2020-10-20] VITALS (696 sets, daily range): BP systolic 122–146; BP diastolic 60–72; PULSE 75–97; TEMP 37.6; O2SAT 63–99
--- NOTE | 2020-10-20 02:09 | NUR ---
PATIENT TUBE FEEDING RESIDUAL 300MLS AND THOMPSON IN COLOR. TUBE FEEDINGS ON HOLD AND WILL RECHECK AFTER 2 HOURS.
[2020-10-20 04:04] LABS: ARTERIAL BLD GAS O2 SATURATION 95.4 % (92-100); ARTERIAL BLD GAS TCO2 CT 36.4; ARTERIAL BLOOD GAS BASE EXCESS 6.8 (-2-2); ARTERIAL BLOOD GAS HCO3 34.5 meq/L (22-26); ARTERIAL BLOOD GAS PCO2 62.6 mmHg (35-45); ARTERIAL BLOOD GAS PO2 81.9 mmHg (80-100); ARTERIAL BLOOD GAS pH 7.36 (7.35-7.45)
--- NOTE | 2020-10-20 04:38 | NUR ---
PATIENT RESIDUAL RECHECKED AFTER TUBE FEEDINGS HAD BEEN ON HOLD FOR 2 HOURS. RESIDUAL WAS THOMPSON IN COLOR AND OUTPUT WAS 350MLS. WILL SHUT TUBE FEEDINGS OFF FOR SEVERAL HOURS. IT WAS DISCUSSED AT REPORT THAT THE PATIENT DOES NOT DO WELL TOLERATING TUBE FEEDINGS WHILE PRONED. WILL CONTINUE TO MONITOR RESIDUALS AND NOTIFIY PHYSCIAN NEEDED.
--- NOTE | 2020-10-20 05:51 | NUR ---
PATIENT STARTED ON SEDATION VACATION. FENTANYL DECREASED TO 75 MCG/HR OR 3.8MLS/HR AND VERSED DECREASED TO 6MG/HR OR 6MLS/HR. VS REMAIN WNL. PATIENT IN PRONE POSITION ON RIGHT SIDE. WILL CONTINUE TO MONITOR.
--- NOTE | 2020-10-20 06:24 | NUR ---
VERSED GTT INCREASED BACK TO 8MLS/HR AND FENTANYL INCREASED BACK TO 6.3MLS/HR. PATIENTS O2 SATS DROPPED INTO THE 70'S WHILE BEING PRONED TO THE RIGHT SIDE BUT CAME BACK UP AFTER REPOSITIONING AND SUCTIONING. ALL OTHER VS REMAIN WNL. PATIENT NOT ALERT AND NOT ABLE TO FOLLOW COMMANDS. PATIENT REMAINS IN PRONE POSITION. SEDATION VACATION ENDED AT THIS TIME.
[2020-10-20 06:51] LABS: HEMATOCRIT 41.8 % (42.0-52.0); HEMOGLOBIN 13.2 g/dl (13.5-18.0); MEAN CELL VOLUME 90 fl (80.0-100.0); MEAN CORPUSCULAR HEMOGLOBIN 28 pg (27.0-31.0); MEAN CORPUSCULAR HGB CONC 32 g/dl (33.0-37.0); PLATELET COUNT 88 K/mm3 (130-400); RED BLOOD COUNT 4.67 M/mm3 (4.20-5.60); REDCELL DISTRIBUTION WIDTH-CV 16.5 % (11.5-14.5)
[2020-10-20 06:53] LABS: INR 1.6 (0.8-3.0); PROTHROMBIN TIME 18.5 SECONDS (9.7-12.8)
--- NOTE | 2020-10-20 07:20 | NUR ---
Report received from Jose Enrique VELASCO and care transfered.
[2020-10-20 07:40] LABS: BAND 6 % (0-10); METAMYELOCYTE 2 % (0-0); MYELOCYTE 2 % (0-0); NEUTROPHILS 89 % (42.0-75.2)
[2020-10-20 07:41] LABS: ANISOCYTOSIS 1+; HYPOCHROMIA 1+; PLATELET ESTIMATE DECREASED (NORMAL)
[2020-10-20 08:21] LABS: CALCIUM 7.5 mg/dL (8.4-10.2); CREATININE, serum 2.1 (0.66-1.25); POTASSIUM 3.8 mmol/L (3.4-5.0)
[2020-10-20 11:04] LABS: PHOSPHOROUS 5.5 mg/dL (2.5-4.5)
[2020-10-20 11:27] LABS: ARTERIAL BLD GAS O2 SATURATION 85.8 % (92-100); ARTERIAL BLD GAS TCO2 CT 37.5; ARTERIAL BLOOD GAS BASE EXCESS 8.1 (-2-2); ARTERIAL BLOOD GAS HCO3 35.6 meq/L (22-26); ARTERIAL BLOOD GAS PCO2 62.2 mmHg (35-45); ARTERIAL BLOOD GAS PO2 53.1 mmHg (80-100); ARTERIAL BLOOD GAS pH 7.38 (7.35-7.45)
--- NOTE | 2020-10-20 14:12 | NUR ---
tension worker contacted spouse, Essie, and introduced self. Essie states that she is celebrating the survival of covid by getting her hair done at this time. Essie stated she will be coming into see patient today around 3:30 and then will meet with Dr Aguayo around 5:00pm. Worker will continue to follow and assist with planning.
--- NOTE | 2020-10-20 20:15 | NUR ---
Patient proned at this time. Desaturated to mid 80's for a brief period of time but otherwise tolerated well. Will continue to monitor.
[2020-10-20 21:22] LABS: COLLECTION METHOD CATHETER
[2020-10-20 21:49] LABS: AMORPHOUS CRYSTAL Present /uL; PH 5 (5-8); SQUAMOUS EPITHELIAL None Seen /hpf; URINE APPEARANCE Cloudy; URINE BACTERIA None Seen /hpf; URINE BILIRUBIN Negative (NEGATIVE); URINE BLOOD 3+ (NEGATIVE); URINE COLOR Yellow; URINE GLUCOSE Negative (NEGATIVE); URINE KETONE Negative (NEGATIVE); URINE LEUKOCYTE ESTERASE Negative (NEGATIVE); URINE NITRATE Negative (NEGATIVE); URINE PROTEIN(semi-quant) 1+ (NEGATIVE); URINE RBC >50 /hpf; URINE UROBILINOGEN Negative (NEGATIVE)
[2020-10-21] VITALS (713 sets, daily range): BP systolic 116–140; BP diastolic 56–72; PULSE 73–86; TEMP 98.3–99; O2SAT 71–96
--- NOTE | 2020-10-21 02:00 | NUR ---
Repositioned while in the prone position. Patient desaturates to the mid 80's with turning and takes approximately 20 minutes to recover to previous o2 readings. Patient has minimal response to painful stimuli. Have been titrating down on sedation as long as patient tolerates.
[2020-10-21 05:37] LABS: HEMATOCRIT 42.3 % (42.0-52.0); HEMOGLOBIN 13.5 g/dl (13.5-18.0); MEAN CELL VOLUME 91 fl (80.0-100.0); MEAN CORPUSCULAR HEMOGLOBIN 29 pg (27.0-31.0); MEAN CORPUSCULAR HGB CONC 32 g/dl (33.0-37.0); MEAN PLATELET VOLUME 11.3 fl (7.4-10.4); PLATELET COUNT 76 K/mm3 (130-400); RED BLOOD COUNT 4.63 M/mm3 (4.20-5.60); REDCELL DISTRIBUTION WIDTH-CV 16.7 % (11.5-14.5)
[2020-10-21 05:40] LABS: ARTERIAL BLD GAS TCO2 CT 34.9; ARTERIAL BLOOD GAS BASE EXCESS 4.7 (-2-2); ARTERIAL BLOOD GAS HCO3 32.9 meq/L (22-26); ARTERIAL BLOOD GAS PCO2 64.1 mmHg (35-45); ARTERIAL BLOOD GAS PO2 87.5 mmHg (80-100); ARTERIAL BLOOD GAS pH 7.33 (7.35-7.45)
[2020-10-21 05:43] LABS: CALCIUM 7.2 mg/dL (8.4-10.2); CREATININE, serum 3.31 (0.66-1.25); MAGNESIUM 3.2 mg/dL (1.6-2.3); PHOSPHOROUS 7.7 mg/dL (2.5-4.5); POTASSIUM 4.1 mmol/L (3.4-5.0)
[2020-10-21 05:50] LABS: PRE ALBUMIN 15.4 mg/dL (17.6-36.0)
--- NOTE | 2020-10-21 06:56 | NUR ---
Sedation vacation not performed due to patient being Prone.
[2020-10-21 07:08] LABS: BAND 16 % (0-10); LYMPHOCYTE 1 % (20.0-51.0); METAMYELOCYTE 1 % (0-0); NEUTROPHILS 81 % (42.0-75.2); PLATELET ESTIMATE DECREASED (NORMAL)
--- NOTE | 2020-10-21 07:39 | NUR ---
Report received from Keturah VELASCO and care resumed.
--- NOTE | 2020-10-21 08:50 | NUR ---
Assessment complete. See charting. Pt remains sedated on vent at this time. Versed titrated down due to increased sedation level. Vitals stable at this time with no recent vent settings throughout the night. Tube feeds remain on hold. No residual noted this am. Pt still in prone position and will remain until approximately 12pm. No concerns at this time, will continue to follow.
--- NOTE | 2020-10-21 10:50 | NUR ---
Dr Echavarria in to see pt at this time. Will consult surgery for DLDC placement. Dr Echavarria stated he has contacted Dr Rodriguez. Will continue to follow.
--- NOTE | 2020-10-21 11:50 | NUR ---
Dr Aguayo in to see pt at this time.
--- NOTE | 2020-10-21 13:30 | NUR ---
Dr Winston called for update on pt and provided over the phone.
--- NOTE | 2020-10-21 14:55 | NUR ---
Dr Rodriguez at bedside and was assisted with positioning of patient for placement of right femoral dialysis line. Pt did have sats mid to upper 70's during lying flat. Once line placed and pt head elevated, sats able to recover to 88-90%.
--- NOTE | 2020-10-21 16:18 | NUR ---
Called Dr Aguayo to clarify proning. Phone order received ok to still prone pt with femoral dialysis line in place.
--- NOTE | 2020-10-21 18:05 | NUR ---
Pt now prone
--- NOTE | 2020-10-21 19:02 | NUR ---
Report given to Keturah VELASCO and care transfered.
[2020-10-22] VITALS (770 sets, daily range): BP systolic 130–165; BP diastolic 64–84; PULSE 74–92; TEMP 98.4–99.7; O2SAT 80–100
--- NOTE | 2020-10-22 | NUR ---
Residuals from tube feed 380. Bowel sounds hypoactive. Tube feeds held at this time.
--- NOTE | 2020-10-22 03:04 | NUR ---
Assisted with turning while proned. Tolerated well. Oral care provided. Will continue to monitor.
--- NOTE | 2020-10-22 05:30 | NUR ---
Tube feed residual still 300 ml. Continues to be on hold.
[2020-10-22 06:07] LABS: ARTERIAL BLD GAS O2 SATURATION 85.7 % (92-100); ARTERIAL BLOOD GAS BASE EXCESS 8.2 (-2-2); ARTERIAL BLOOD GAS HCO3 36.4 meq/L (22-26); ARTERIAL BLOOD GAS PCO2 67.3 mmHg (35-45); ARTERIAL BLOOD GAS PO2 56.2 mmHg (80-100); ARTERIAL BLOOD GAS pH 7.35 (7.35-7.45)
--- NOTE | 2020-10-22 06:12 | NUR ---
SPOKE WITH PHYSICAN DR. BALTAZAR FROM [facility] AND REPORTED ABG CRITICAL RESULTS. NO VENT CHANGES WANTED BY PHYSICAN.
[2020-10-22 06:39] LABS: CREATININE, serum 4.49 (0.66-1.25); MAGNESIUM 3.4 mg/dL (1.6-2.3); PHOSPHOROUS 7.7 mg/dL (2.5-4.5); POTASSIUM 3.9 mmol/L (3.4-5.0)
--- NOTE | 2020-10-22 07:50 | NUR ---
PT moved from prone to supine with help of 4 RNs and 1 RT no complications noted. PT O2 saturation maintaining at 92%. Will continue to monitor.
--- NOTE | 2020-10-22 08:06 | NUR ---
Sedation vacation not performed due to being proned.
[2020-10-22 08:16] LABS: HEMATOCRIT 41.3 % (42.0-52.0); HEMOGLOBIN 13.1 g/dl (13.5-18.0); MEAN CELL VOLUME 89 fl (80.0-100.0); MEAN CORPUSCULAR HEMOGLOBIN 28 pg (27.0-31.0); MEAN CORPUSCULAR HGB CONC 32 g/dl (33.0-37.0); MEAN PLATELET VOLUME 11.2 fl (7.4-10.4); PLATELET COUNT 79 K/mm3 (130-400); RED BLOOD COUNT 4.62 M/mm3 (4.20-5.60); REDCELL DISTRIBUTION WIDTH-CV 16.4 % (11.5-14.5)
[2020-10-22 08:33] LABS: BAND 14 % (0-10); LYMPHOCYTE 2 % (20.0-51.0); METAMYELOCYTE 2 % (0-0); NEUTROPHILS 79 % (42.0-75.2); PLATELET ESTIMATE DECREASED (NORMAL)
[2020-10-22 15:39] LABS: HEPATITIS B SURFACE ANTIBODY 2.1 (()); HEPATITIS B SURFACE ANTIGEN Negative (Negative); HEPATITIS C VIRUS ANTIBODY Negative (Negative)
--- NOTE | 2020-10-22 22:05 | NUR ---
PATIENT HAVING THICK BLOODY ORAL SECRETIONS. RN WAS NOTIFIED. WILL CONTINUE TO MONITOR.
[2020-10-23] VITALS (601 sets, daily range): BP systolic 102–156; BP diastolic 57–78; PULSE 70–79; TEMP 97.5–97.8; O2SAT 83–100
--- NOTE | 2020-10-23 05:00 | NUR ---
NO SEDATION ON AT THIS TIME DUE TO POOR NEURO STATUS.
[2020-10-23 05:22] LABS: ARTERIAL BLD GAS O2 SATURATION 96.3 % (92-100); ARTERIAL BLD GAS TCO2 CT 28.7; ARTERIAL BLOOD GAS BASE EXCESS -0.8 (-2-2); ARTERIAL BLOOD GAS HCO3 26.9 meq/L (22-26); ARTERIAL BLOOD GAS PCO2 58.5 mmHg (35-45); ARTERIAL BLOOD GAS PO2 94.5 mmHg (80-100); ARTERIAL BLOOD GAS pH 7.28 (7.35-7.45)
[2020-10-23 05:47] LABS: HEMATOCRIT 38.2 % (42.0-52.0); HEMOGLOBIN 12.1 g/dl (13.5-18.0); MEAN CELL VOLUME 91 fl (80.0-100.0); MEAN CORPUSCULAR HEMOGLOBIN 29 pg (27.0-31.0); MEAN CORPUSCULAR HGB CONC 32 g/dl (33.0-37.0); MEAN PLATELET VOLUME 12.7 fl (7.4-10.4); PLATELET COUNT 82 K/mm3 (130-400); RED BLOOD COUNT 4.18 M/mm3 (4.20-5.60); REDCELL DISTRIBUTION WIDTH-CV 16.7 % (11.5-14.5)
[2020-10-23 05:59] LABS: CALCIUM 7.3 mg/dL (8.4-10.2); MAGNESIUM 3.6 mg/dL (1.6-2.3); PHOSPHOROUS 8.2 mg/dL (2.5-4.5); POTASSIUM 4.5 mmol/L (3.4-5.0)
[2020-10-23 06:05] LABS: CREATININE, serum 4.78 (0.66-1.25)
[2020-10-23 06:54] LABS: ANISOCYTOSIS 1+; BAND 6 % (0-10); LYMPHOCYTE 3 % (20.0-51.0); NEUTROPHILS 87 % (42.0-75.2); PLATELET ESTIMATE DECREASED (NORMAL)
[2020-10-23 06:55] LABS: HYPOCHROMIA 1+
--- NOTE | 2020-10-23 07:00 | NUR ---
TIMELINE OF EVENTS (please see physican notification intervention to review neuro status discussion prior to this event) 0125- Spoke with BEN Provider about the following-- PT [place] scale is currently 2. PT is nonresponsive to pain. Unable to accurately assess pupils as patient is proned. Sedation has been off for several hours. PT also passing clots of blood through his mouth, it is not coming through the ET tube. I would like to unprone him to see the source of the bleed, accurately assess his pupils, and possibly take him to CT. Provider agreed to unprone. Stated he will put in CT order after patient has been unproned and continues to be hemodynamically stable. 0150- PT returned supine at this time. Pupils are unequal, nonreactive to light, no pain response. No source of bleed noted but a moderate amount of blood and clots noted in the patient's mouth. BEN provider notified of all of this and STAT CT of the head without contrast was ordered. PT taken to CT a few minutes after the order was placed. 0218- Back from CT with patient. No abnormal events occuring during transport or scan. Called BEN upon return to the unit to notify them that the CT was done. Provider stated he would call me back after reviewing the scan. 0238- BEN provider called back to state that PT has very large hemorrhagic brain bleed and to call Neurologist along with giving IV mannitol. 0242- This RN called Dr. Adkins to notify him of the situation. Dr. Adkins stated he is aware as the radiologist called him with the CT results. Provider states it is unlikely that there is much more we can do for the patient but to still call Dr. Haines. Dr. Adkins stated he would call family to let them know of grave prognosis. 0246- This RN called Dr. Haines and notified him of the situation. Orders to give 50mg IV mannitol now and 25mg IV Q6H thereafter recieved. 0255- Spoke with Dr. Adkins, he stated that he spoke with family who have now made the PT a DNR. Comfort care was not discussed at this time. Provider DC'd all anticoagulants and ordered a Cardene gtt to keep systolic <150. 0311- Spoke with BEN provider, gave updates and notified provider that PT urine output has decreased. Provider stated that urine output will come up with Mannitol infusion.
--- NOTE | 2020-10-23 07:13 | NUR ---
TRANSPORTED PATIENT TO STAT CT AND SWTICHED PATIENT FROM PRONE TO SUPINE. PATIENTS HAVING INCREASED AMOUNT OF BLOOD CLOTS IN THE MOUTH AND YOKO RED BLOOD.
[2020-10-23 07:45] LABS: PATHOLOGY DIFF REVIEW OK
--- NOTE | 2020-10-23 08:10 | NUR ---
Report received from KRISTA Vásquez. Patient continues to be unresponsive to stimuli. Does not withdraw from pain. See assessment as charted. Will continue to monitor.
--- NOTE | 2020-10-23 09:37 | NUR ---
Spoke with Essie. She will come for a family meeting with Dr. Aguayo around 1100. We will call the patient's son and have him on speakerphone during the meeting.
[2020-10-23 10:37] LABS: INR 1.4 (0.8-3.0); PROTHROMBIN TIME 15.4 SECONDS (9.7-12.8)
--- NOTE | 2020-10-23 10:39 | NUR ---
The patient's condition has changed significantly. A Palliative Care consult was ordered. Per Hina Johnson, palliative care nurse there is a family meeting this day at 11:00 am this day.
[2020-10-23 10:40] LABS: PARTIAL THROMBOPLASTIN TIME 28.6 SECONDS (26.0-37.0)
--- NOTE | 2020-10-23 11:30 | NUR ---
Family meeting at bedside at this time. , Essie at bedside & sons (Benjamin & Simon) on phone. Hina Castano, palliative care RN & this RN. Current neuro status reviewed. Plan to palliative extubate tomorrow when sons arrive.
--- NOTE | 2020-10-23 12:17 | NUR ---
Family meeting held in room with pt, his Essie, Benjamin and Simon on speaker phone, Dr Aguayo, Lisbet Boo RN, and Hina Johnson RN. Dr Aguayo presented the latest issue with pt which is a menorrhagic brain bleed in the lt frontal lobe with herniation and severe mass effect. Pt is off sedation but offers no response to voice or pain. Family was given time to ask questions and rovide input. The two sons would like to be with their father when he passes and Dr Aguayo was agreeable to that with the understanding that we will continue current treatments going but will not resuscitate during that time until the sons arrive. Essie is also in agreement with this plan. We would anticipate that sons will not arrive until tomorrow and then after they have time to say goodbyes, we will remove the ET tube and allow a natural . Please palliative care consult.
--- NOTE | 2020-10-23 15:09 | NUR ---
Edge [employer] Hand staffed with ICU plant floor automation manager regarding the family meeting earlier this day. The patient is to go on comfort measures on Monday, 10/24 once the patient's sons arrive. There are no additonal needs at this time.
[2020-10-24] VITALS (311 sets, daily range): BP systolic 131–147; BP diastolic 61–71; PULSE 70–78; TEMP 96.9–99; O2SAT 57–100
[2020-10-24 05:12] LABS: HEMOGLOBIN 11.5 g/dl (13.5-18.0); MEAN CELL VOLUME 91 fl (80.0-100.0); MEAN CORPUSCULAR HEMOGLOBIN 29 pg (27.0-31.0); MEAN CORPUSCULAR HGB CONC 32 g/dl (33.0-37.0); MEAN PLATELET VOLUME 12.1 fl (7.4-10.4); PLATELET COUNT 72 K/mm3 (130-400); RED BLOOD COUNT 3.93 M/mm3 (4.20-5.60); REDCELL DISTRIBUTION WIDTH-CV 16.6 % (11.5-14.5)
[2020-10-24 05:18] LABS: CALCIUM 7.1 mg/dL (8.4-10.2); MAGNESIUM 3.6 mg/dL (1.6-2.3); PHOSPHOROUS 8.6 mg/dL (2.5-4.5); POTASSIUM 4.8 mmol/L (3.4-5.0)
[2020-10-24 05:22] LABS: HEMATOCRIT 35.8 % (42.0-52.0)
[2020-10-24 05:23] LABS: CREATININE, serum 6.19 (0.66-1.25)
[2020-10-24 05:35] LABS: BAND 4 % (0-10); LYMPHOCYTE 1 % (20.0-51.0); NEUTROPHILS 95 % (42.0-75.2); NUCLEATED RED BLOOD CELL 1 (0-6)
[2020-10-24 05:36] LABS: ANISOCYTOSIS 1+; SCHISTOCYTES 1+; TARGET CELLS 1+
--- NOTE | 2020-10-24 07:30 | NUR ---
REPORT RECEIVED FROM ANSA RN. PT HAS NO SEDATION RUNNING AT THIS TIME. PT IS NOT RESPONSIVE. AND SONDS TO COME TODAY TO SEE PT AND CHANGE PT TO COMFORT CARE. WILL CONTINUE TO MONITOR.
--- NOTE | 2020-10-24 09:34 | NUR ---
CALL PLACED TO PT'S LIZ. SHE STATES SHE IS UNSURE OF TIME THEY WILL ARRIVE TO THE HOSPITAL. AND NOTIFIED.
--- NOTE | 2020-10-24 12:00 | NUR ---
FAMILY ARRIVED TO SAY GOODBYE TO PT. ROSEMARY, SOCIAL WORKERS AND HOUSE SUPERVIOR PRESENT. AND TWO SONS TAKEN IN TO SEE PT WITH PPE ON. AFTER VISIT LIZ STATED SHE WANTED THE PT TO BE COMFORT CARE AND EXTUBATED. ON FLOOR AND NOTIFIED. PT WAS EXTUBATED BY MIRNA RT AT 1300. PT'S TIME OF IS 1316.
--- NOTE | 2020-10-24 12:44 | NUR ---
Dye Line Operator prayed and offered support with family of patient in waiting room.
--- NOTE | 2020-10-24 14:40 | NUR ---
PT PICKED UP BY HOME. ONE BAG OF BELONGING TAKEN WITH .
--- NOTE | 2020-10-24 14:48 | NUR ---
[facility] notified of time of of patient. Patient is OK to be released to the home. Confirmation # [id number]. [id number] notified of patients . They will be here soon to scrap picker patient. Dr. Torres's (on-call for Dr. Meier) notified of patients .
--- NOTE | 2020-10-24 15:41 | NUR ---
SW informed that family would be arriving soon by patient's nurse and house nurse. SW assisted House Nurse and ICU staff with meeting with family. Family entered to say goodbyes to patient. Patient at approx 1316, home arrived to bead picker patient. Nothing further.
== END 2020-10-24 14:51 | disposition expired | DRG 207 ==
LOC: COL.ER 22:11 → MEDICAL 10-11 02:17 → ICU 10-12 13:24
PROVIDERS: Family Medicine; Internal Medicine Critical Care Medicine; Internal Medicine Nephrology; Internal Medicine Pulmonary Disease; Physician Assistant; Student in an Organized Health Care Education/Training Program; ADMIT Emergency Medicine
PROC: 02HV33Z Insertion of Infusion Device into Superior Vena Cava, Percutaneous Approach (ICD-10-PCS; principal; 2020-10-12)
PROC: 5A1955Z Respiratory Ventilation, Greater than 96 Consecutive Hours (ICD-10-PCS; 2020-10-12)
PROC: 0BH17EZ Insertion of Endotracheal Airway into Trachea, Via Natural or Artificial Opening (ICD-10-PCS; 2020-10-12)
PROC: 05HY33Z Insertion of Infusion Device into Upper Vein, Percutaneous Approach (ICD-10-PCS; 2020-10-21)
DX: U07.1 COVID-19 (principal); J12.89 Other viral pneumonia; J96.01 Acute respiratory failure with hypoxia; I21.A1 Myocardial infarction type 2; E87.1 Hypo-osmolality and hyponatremia; N17.9 Acute kidney failure, unspecified; I62.9 Nontraumatic intracranial hemorrhage, unspecified; I10 Essential (primary) hypertension; N40.0 Benign prostatic hyperplasia without lower urinary tract symptoms; Z66 Do not resuscitate; I48.0 Paroxysmal atrial fibrillation; E87.6 Hypokalemia; D69.6 Thrombocytopenia, unspecified; Z51.5 Encounter for palliative care; E66.9 Obesity, unspecified; I95.9 Hypotension, unspecified; Z86.718 Personal history of other venous thrombosis and embolism; Z95.0 Presence of cardiac pacemaker; Z79.02 Long term (current) use of antithrombotics/antiplatelets; Z68.33 Body mass index [BMI] 33.0-33.9, adult
CPT/HCPCS: 99222-AI; 99233-AI; 99239; C1751; J0610; J0692; J1100; J1644; J1815; J2250; J2704; J2765; J3010; J3430; J3480; J7030; J7050; J7060; J7120